=== PATIENT | female | born 1975 | race African-American/Black ===

== ENCOUNTER 2016-05-22 07:44 | Observation (INO) | payer MEDICAID ==
[~2016-05-22] VITALS: Ht 165.1 cm; Wt 94.3 kg
[2016-05-22 08:30] LABS: Basophils # (auto) 0 uL; Basophils % (auto) 0.2 % (0.0-2.0); DEFINITIVE VIEW TRANSMISSION; Eosinophils # (auto) 0.5 uL; Eosinophils % (auto) 5.9 % (0.0-7.0); Hemoglobin 9.7 g/dL (12.2-16.2); Lymphocytes # (auto) 0.9 uL; Lymphocytes % (auto) 10.9 % (10.0-50.0); Mean Corpuscular Hemoglobin 23.6 pg (28.0-32.0); Mean Corpuscular Hgb Conc. 32.3 g/dL (32.0-36.0); Mean Corpuscular Volume 73.1 fL (80.0-100.0); Mean Platelet Volume 8.2 fL (7.4-10.4); Monocytes # (auto) 0.4 uL; Neutrophils # (auto) 6.7 uL; Platelet Count (auto) 436 10^3/uL (140-450); Red Cell Distribution Width 18.9 % (11.6-16.0); SUSPECT VIEW TRANSMISSION; White Blood Cell 8.6 10^3/uL (4.4-10.8)
[2016-05-22] MEDS ORDERED: SODIUM CHLORIDE 0.9% 1,000 ML IV ONE (08:34)
[2016-05-22] MEDS ORDERED: IPRATROPIUM BROM 0.5 MG/2.5ML INH SOL NEB ONE (08:45)
[2016-05-22] MEDS ORDERED: ALBUTEROL SULF 2.5 MG/0.5ML(0.5%) NEB SOLN NEB ONE (08:45)
[2016-05-22 08:47] LABS: Albumin 3.2 g/dL (3.4-5.0); BUN/Creatinine Ratio 15.5; Potassium 3.2 mmol/L (3.5-5.1)
[2016-05-22 08:49] LABS: Bilirubin, Total 0.3 mg/dL (0.2-1.0)
[2016-05-22 08:50] LABS: Total Protein 7.4 g/dL (6.4-8.2)
[2016-05-22 09:29] LABS: Urine Bilirubin Negative (Negative); Urine Blood Negative /uL (Negative); Urine Color Yellow (Yellow); Urine Glucose Normal (Normal); Urine Ketone Negative (Negative); Urine Mucus FEW (None Seen); Urine Nitrite Negative (Negative); Urine RBC <1 /hpf (0 - 4); Urine Squamous Epithelial Cell FEW /hpf (<5); Urine Urobilinogen Normal (Negative)
[2016-05-22] MEDS ORDERED: POTASSIUM CHL 10% (20 MEQ/15ML) ORAL SOLN PO ONE (12:15)
[2016-05-22 12:48] VITALS: BP 152/92
== END 2016-05-22 14:17 | disposition home or self-care (01) | DRG 723 ==
LOC: ER 07:44 → OVERFLOW 07:45 → UNDOADMOB 07:45 → OVERFLOW 08:36 → ER 14:17 → UNDODISOB 14:17
PROVIDERS: ADMIT Emergency Medicine; ATTEND Emergency Medicine
DX: B34.9 Viral infection, unspecified (principal); I10 Essential (primary) hypertension; E44.1 Mild protein-calorie malnutrition; D50.9 Iron deficiency anemia, unspecified; E87.6 Hypokalemia; F17.210 Nicotine dependence, cigarettes, uncomplicated; J45.909 Unspecified asthma, uncomplicated; J02.9 Acute pharyngitis, unspecified; M79.1 Myalgia
CPT/HCPCS: 36415; 71020; 80053; 81001; 81025; 83735; 84443; 85025; 94640; 96360; 96361; 99285; G0378; J7030

== ENCOUNTER 2016-08-06 13:54 | Emergency (ER) | payer MEDICAID ==
[~2016-08-06] VITALS: Ht 170.2 cm; Wt 86.2 kg
[2016-08-06] MEDS ORDERED: SODIUM CHLORIDE 0.9% 1,000 ML IVB ONE (14:08)
[2016-08-06] MEDS ORDERED: HYDROmorphone HCL 2 MG/ML VL IV ONE (14:15)
[2016-08-06] MEDS ORDERED: ONDANSETRON HCL 4 MG/2 ML VIAL IV ONE (14:15)
[2016-08-06 15:28] LABS: Basophils # (auto) 0 uL; Basophils % (auto) 0.2 % (0.0-2.0); DEFINITIVE VIEW TRANSMISSION; Eosinophils # (auto) 0.1 uL; Eosinophils % (auto) 0.8 % (0.0-7.0); Hematocrit 34.8 % (36.0-46.0); Hemoglobin 11.7 g/dL (12.2-16.2); Lymphocytes # (auto) 1.1 uL; Mean Corpuscular Hemoglobin 26.9 pg (28.0-32.0); Mean Corpuscular Hgb Conc. 33.5 g/dL (32.0-36.0); Mean Corpuscular Volume 80.3 fL (80.0-100.0); Mean Platelet Volume 9.4 fL (7.4-10.4); Monocytes # (auto) 0.6 uL; Monocytes % (auto) 4.9 % (0.0-12.0); Neutrophils # (auto) 10.1 uL; Neutrophils % (auto) 85.1 % (37.0-80.0); Platelet Count (auto) 427 10^3/uL (140-450); Red Cell Distribution Width 19.9 % (11.6-16.0); White Blood Cell 11.9 10^3/uL (4.4-10.8)
[2016-08-06 15:49] LABS: Albumin 3.7 g/dL (3.4-5.0); BUN/Creatinine Ratio 16.7; Bilirubin, Total 0.5 mg/dL (0.2-1.0); Calcium 8.9 mg/dL (8.5-10.1); Magnesium 2.1 mg/dL (1.6-2.6); Potassium 3.3 mmol/L (3.5-5.1); Total Protein 7.6 g/dL (6.4-8.2)
[2016-08-06 16:23] VITALS: BP 147/85
[2016-08-06 17:31] LABS: Urine Bilirubin Negative (Negative); Urine Blood Negative /uL (Negative); Urine Color Yellow (Yellow); Urine Glucose Normal (Normal); Urine Ketone Negative (Negative); Urine Nitrite Negative (Negative); Urine RBC <1 /hpf (0 - 4); Urine Squamous Epithelial Cell FEW /hpf (<5); Urine Urobilinogen Normal (Negative)
[2016-08-06 18:59] LABS: Anisocytosis Slight; Platelet Estimate Adequate
== END 2016-08-06 19:08 | disposition home or self-care (01) ==
LOC: EDBD 13:54 → ER 14:00
DX: R10.31 Right lower quadrant pain (principal); I10 Essential (primary) hypertension; F17.210 Nicotine dependence, cigarettes, uncomplicated; J45.909 Unspecified asthma, uncomplicated; Z90.49 Acquired absence of other specified parts of digestive tract; E66.9 Obesity, unspecified; Z68.29 Body mass index [BMI] 29.0-29.9, adult
CPT/HCPCS: 36415; 74176; 80053; 81001; 82150; 83690; 83735; 84702; 85025; 94761; 96361; 96374; 96375; 99285; J1170; J2405

== ENCOUNTER 2020-10-14 06:01 | Emergency (ER) | payer MEDICAID ==
[~2020-10-14] VITALS: Ht 165.1 cm; Wt 98.0 kg
[2020-10-14 07:46] VITALS: BP 121/73
[2020-10-14] MEDS ORDERED: cefTRIAXone SOD 1,000 MG VL IM ONE (08:15)
[2020-10-14] MEDS ORDERED: LIDOCAINE HCL (LOCAL ANESTH.) 0.5 % 50ML MDV IJ ONE (08:15)
[2020-10-14] MEDS ORDERED: LIDOCAINE 1% HCL (LOCAL ANESTH.) INJ 20ML MDV ONE (08:17)
== END 2020-10-14 08:44 | disposition home or self-care (01) ==
LOC: ER 06:01
DX: K04.7 Periapical abscess without sinus (principal); I10 Essential (primary) hypertension; J45.909 Unspecified asthma, uncomplicated; F17.210 Nicotine dependence, cigarettes, uncomplicated; Z90.49 Acquired absence of other specified parts of digestive tract
CPT/HCPCS: 41800; 96372; 99284; J0696; J2001

== ENCOUNTER 2022-04-04 17:28 | Emergency (ER) | payer MEDICAID ==
[2022-04-04 18:35] LABS: Hemoglobin 8.6 g/dL (12.2-16.2); White Blood Cell 8.5 10^3/uL (4.4-10.8)
[2022-04-04 18:37] LABS: Mean Corpuscular Hemoglobin 19.8 pg (28.0-32.0); Mean Corpuscular Hgb Conc. 30.8 g/dL (32.0-36.0); Mean Corpuscular Volume 64.5 fL (80.0-100.0); Red Blood Cells 4.34 10^6/uL (4.0-5.20)
[2022-04-04 18:39] LABS: Albumin 3.7 g/dL (3.4-5.0); BUN/Creatinine Ratio 14.9; Calcium 9.2 mg/dL (8.5-10.1); Potassium 3.9 mmol/L (3.5-5.1)
[2022-04-04 18:42] LABS: Bilirubin, Total 0.2 mg/dL (0.2-1.0); Total Protein 7.7 g/dL (6.4-8.2)
[2022-04-04 18:44] LABS: Red Cell Distribution Width 24.9 % (11.8-14.3)
[2022-04-04 18:45] LABS: Band Neutrophils % (manual) 0; Basophils % (manual) 0 (0.0-2.0); Blast Cells 0; Metamyelocytes % 0; Myelocytes % 0; Promyelocytes % 0; Reactive Lymphocytes 0
[2022-04-04 19:23] LABS: Eosinophils % (manual) 3 (0-7); Lymphocytes % (manual) 26 (10.0-50.0); Monocytes % (manual) 8 (0-12)
[2022-04-04 20:40] VITALS: BP 152/87
== END 2022-04-04 20:34 | disposition left against medical advice (07) ==
LOC: ER 17:28
DX: D64.9 Anemia, unspecified (principal); D25.9 Leiomyoma of uterus, unspecified; N93.8 Other specified abnormal uterine and vaginal bleeding; I10 Essential (primary) hypertension; F17.210 Nicotine dependence, cigarettes, uncomplicated; Z90.49 Acquired absence of other specified parts of digestive tract
CPT/HCPCS: 36415; 76856; 80053; 84702; 85007; 85027

== ENCOUNTER 2024-12-30 06:18 | Emergency (ER) | payer MEDICAID ==
[~2024-12-30] VITALS: Ht 165.1 cm; Wt 105.2 kg
[2024-12-30 07:20] LABS: Hematocrit 39.5 % (36.0-46.0); Hemoglobin 13.6 g/dL (12.2-16.2); Mean Corpuscular Hemoglobin 31.8 pg (28.0-32.0); Mean Corpuscular Volume 92.3 fL (80.0-100.0); Nucleated Red Blood Cells % 0.0 %
--- NOTE | 2024-12-30 07:20 | ED.PDOC ---
[employer] HPI Comments A 49 YEAR OLD FEMALE PRESENTS TO THE ED WITH COMPLAINT OF VAGINAL BLEEDING AND PELVIC CRAMPING. PATIENT STATES SHE HAS BEEN EXPERIENCING VAGINAL BLEEDING AND PELVIC CRAMPING OFF AND ON SINCE 11/07/2024. PATIENT NOTES HE HAS A HISTORY UTERINE FIBROIDS AND HAD AN ABLATION DONE TO REMOVE THEM, BUT NOTES SHE HAD AN ULTRASOUND DONE THIS PREVIOUS FRIDAY AND [facility] WHERE UTERINE FIBROIDS WERE REVEALED ON AN ULTRASOUND. PATIENT NOTES SHE WAS PRESCRIBED PROVERA, BUT NOTES THERE HAS BEEN NO IMPROVEMENT IN HER SYMPTOMS. PATIENT IS ALSO REQUESTING A BLOOD TEST IN THE ED SHE STATES SHE IS NOT SURE IF SHE IS CURRENTLY OR NOT, BUT NOTES IT IS A POSSIBILITY. PATIENT NOTES SHE HAS AN APPOINTMENT WITH HER [facility] H [employer] AGENT THIS COMING UP Friday01/03/2025. PATIENT DENIES DYSURIA, HEMATURIA, VAGINAL DISCHARGE, FLANK PAIN, FEVER, CHILLS, SHORTNESS OF BREATH, CHEST PAIN, ABDOMINAL PAIN, NAUSEA, VOMITING, HEADACHE, OR OTHER COMPLAINTS. NO OTHER SYMPTOMS OR MODIFYING FACTORS AT THIS TIME. PATIENT IS ALERT, ORIENTED X 4, AND HAS STEADY GAIT. Chief Complaint: Vaginal Bleed Time Seen by MD: 06:42 Reviewed Notes: Nurses Notes, Medications, Allergies Allergies: Coded Allergies: NO KNOWN ALLERGIES (Unverified , 05/22/16) Home Meds Active Scripts Naproxen (Naproxen) 500 Mg Tab, 500 MG PO BID, #30 TAB Prov:DANG HAN 12/30/24 Information Source: Patient Mode of Arrival: Ambulatory Timing: Weeks Prehospital treatment: None Severity: Moderate Vaginal Discharge: None Vaginal Lesions: None Bleeding Quality: Bright Red Vaginal Mass: None Onset Of Mass/Bleeding: Spontaneous Sexual Activity: Neither Last Consensual Day Heights: Unknown Control: None Blood Type: Unknown Symptoms of Possible : None Associated Signs and Symptoms: Vaginal Bleeding, Cramping Past Medical History PAST MEDICAL HISTORY: Anemia, HTN Surgical History: Cholecystectomy, [employer] TECHNICIAN History: Uterine Fibroids Family History Family History: Reviewed,noncontributory to illness Social History Smoker: Cigarettes Alcohol: Occasionally Drugs: Denies Drug Use Lives In: Home Constitutional: denies: chills, diaphoresis, fatigue, fever, malaise, sweats, weakness, others EENTM: denies: blurred vision, double vision, ear bleeding, ear discharge, ear drainage, ear pain, ear ringing, eye pain, eye redness, hearing loss, mouth pain, mouth swelling, nasal discharge, nose bleeding, nose congestion, nose pain, photophobia, tearing, throat pain, throat swelling, voice changes, others Respiratory: denies: cough, hemoptysis, orthopnea, SOB at rest, shortness of breath, SOB with excertion, stridor, wheezing, others Cardiovascular: denies: chest pain, dizzy spells, diaphoresis, Dyspnea on exertion, edema, irregular heart beat, left arm pain, lightheadedness, palpitations, PND, syncope, others Gastrointestinal: denies: abdomen distended, abdominal pain, blood streaked bowels, constipated, diarrhea, dysphagia, difficulty swallowing, hematemesis, melena, nausea, poor appetite, poor fluid intake, rectal bleeding, rectal pain, vomiting, others Genitourinary: reports: abnormal vagina bleeding, pain (PELVIC PAIN); denies: burning, dyspareunia, dysuria, flank pain, frequency, hematuria, incontinence, , vagina discharge, urgency, others Neurological: denies: dizziness, fainting, headache, left sided numbness, left sided weakness, numbness, paresthesia, pre-existing deficit, right sided numbness, right sided weakness, seizure, speech problems, tingling, tremors, weakness, others Musculoskeletal: denies: back pain, gout, joint pain, joint swelling, muscle pain, muscle stiffness, neck pain, others Integumetry: denies: bruises, change in color, change in hair/nails, dryness, laceration, lesions, lumps, rash, wounds, others Allergic/Immunocompromised: denies: Difficulty Healing, Frequent Infections, Hives, Itching, others Hematologic/Lymphatic: denies: anemia, blood clots, easy bleeding, easy bruising, swollen glands, others Endocrine: denies: excessive hunger, excessive sweating, excessive thirst, excessive urination, flushing, intolerance to cold, intolerance to heat, unexplained weight gain, unexplained weight loss, others Psychiatric: denies: anxiety, bipolar disorder, depression, hopeless, panic disorder, schizophrenia, sleepless, suicidal, others All Other Systems: Reviewed and Negative Physical Exam General Appearance: No Apparent Distress, Normal HEENT: Normal ENT Inspection, PERRL/EOMI, Pharynx Normal, TMs Normal Neck: Full Range of Motion, Non-Tender, Normal, Normal Inspection Respiratory: Chest Non-Tender, Lungs Clear, No Accessory Muscle Use, No Respiratory Distress, Normal Breath Sounds Cardiovascular: No Edema, No JVD, No Murmur, No Gallop, Normal Peripheral Pulses, Regular Rate/Rhythm Breast Exam: Deferred Gastrointestinal: No Organomegaly, Non Tender, No Pulsatile Mass, Normal Bowel Sounds, Soft Genitalia: Deferred Pelvic: Normal External Exam, Vaginal Bleeding (MENSTRUAL BLEEDING, NO BLOOD CLOTS. 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 Was a procedure done?: No Differential Diagnosis ([employer]LE[employer] FI[employer] TECHNICIAN) Vaginal Bleeding: Dysmenorrhea, Menorrhagia, Menstrual Bleeding, UTI, Vaginitis Mass / Lesion: N/A Vaginal Discharge: UTI, N/A X-Ray, Labs, Meds, VS Vital Signs Date Time Temp Pulse Resp B/P (MAP) Pulse Ox O2 Delivery O2 Flow Rate FiO2 12/30/24 06:32 97.3 109 18 130/88 97 97.3 Lab Test 12/30/24 07:13 12/30/24 06:52 Range/Units Urine Color Light-red Yellow Urine Clarity Cloudy H Clear Urine pH 5.0 5.0-9.0 Urine Specific [place] 1.016 1.001-1.035 Urine Protein 1+ H Negative Urine Ketones 1+ H Negative Urine Blood 3+ H Negative /uL Urine Nitrite Negative Negative Urine Bilirubin Negative Negative Urine Urobilinogen Normal Negative mg/dL Urine Leukocyte Esterase 2+ Negative /uL Urine RBC 3646 0 - 4 /hpf Urine Microscopic WBC 43 H 0-5 /HPF Urine Squamous Epithelial Cells Few <5 /hpf Urine Bacteria None seen None Seen /hpf Urine Glucose Normal Normal mg/dL White Blood Count 7.4 4.4-10.8 10^3/uL Red Blood Count 4.28 4.0-5.20 10^6/uL Hemoglobin 13.6 12.2-16.2 g/dL Hematocrit 39.5 36.0-46.0 % Mean Corpuscular Volume 92.3 80.0-100.0 fL Mean Corpuscular Hemoglobin 31.8 28.0-32.0 pg Mean Corpuscular Hemoglobin Concent 34.5 32.0-36.0 g/dL Red Cell Distribution Width 13.2 11.8-14.3 % Platelet Count 319 140-450 10^3/uL Mean Platelet Volume 9.0 6.9-10.8 fL Neutrophils (%) (Auto) 75.2 37.0-80.0 % Lymphocytes (%) (Auto) 16.9 10.0-50.0 % Monocytes (%) (Auto) 4.3 0.0-12.0 % Eosinophils (%) (Auto) 3.0 0.0-7.0 % Basophils (%) (Auto) 0.6 0.0-2.0 % Neutrophils # (Auto) 5.5 1.6-8.6 10 ^3/uL Lymphocytes # (Auto) 1.2 0.4-5.4 10 ^3/uL Monocytes # (Auto) 0.3 0-1.3 10 ^3/uL Eosinophils # (Auto) 0.2 0-0.8 10 ^3/uL Basophils # (Auto) 0 0-0.2 10 ^3/uL Nucleated Red Blood Cells 0.0 % Sodium Level 142 136-145 mmol/L Potassium Level 3.6 3.5-5.1 mmol/L Chloride Level 109 H 98-107 mmol/L Carbon Dioxide Level 23 20-31 mmol/L Anion Gap 10 5-15 Blood Urea Nitrogen 9 9-23 mg/dL Creatinine 0.79 0.550-1.02 mg/dL Glomerular Filtration Rate Calc 91 >90 mL/min BUN/Creatinine Ratio 11.4 10.0-20.0 Serum Glucose 104 74-106 mg/dL Calcium Level 10.0 8.7-10.4 mg/dL Beta HCG, Quantitative 0.5 L 1.5-4.2 mIU/mL INDICATION: VAGINAL BLEEDING X 2 MONTHS TECHNIQUE: Multiple real-time grayscale transabdominal and transvaginal sonographic images along with color and duplex Doppler of the uterus and ovaries were obtained. COMPARISON: PELVIC on DOS: 04/04/22, PELUS on DOS: 04/04/22 FINDINGS: The uterus measures 11.9 x 9.3 x 7.4 cm. The endometrial stripe measures 1.2cm. Ovaries are not visualized. Uterine fundal fibroids are present measuring up to 2.6 cm in the fundus. Few cervical nabothian cysts are present measuring up to 1.1 cm. IMPRESSION: Uterine fibroids measuring up to 2.6 cm in the fundus. Ovaries are not visualized. ATED BY: STEVO CHASE MD DICTATED DATE/TIME: 12/30/24833 SIGNED BY: STEVO CHASE MD SIGNED DATE/TIME: 12/30/24833 CC: X-Ray, Labs, Meds, VS Comment EXTERNAL MEDICAL RECORDS REVIEWED: [NONE] INDEPENDENT HISTORIANS: [NONE] SOCIAL DETERMINANTS OF HEALTH: [NONE] LABS ORDERED: CBC, BMP, UA, BETA HCG QUANT REVIEWED AND INTERPRETED RESULTS: LEUKOCYTES 2+ IMAGING ORDERED: US PELVIS TREATMENTS ORDERED: TORADOL 60 MG IM PROCEDURES PERFORMED: NONE CRITICAL CARE TIME: NONE I HAVE DISCUSSED THE PATIENT WITH THE ATTENDING PHYSICIAN DR. FISHER AND HE AGREES WITH THE PATIENT'S PLAN OF CARE AND DISPOSITION. BASED ON HISTORY OF PRESENT ILLNESS, AND PHYSICAL EXAM, PATIENT WILL BE DISCHARGED HOME. DISCUSSED PLAN FOR DISCHARGE HOME WITH RX [NAPROXEN 500 MG AND SEPTRA DS]. MEDICATION WARNINGS GIVEN. SHARED DECISION MAKING: DISCUSSED WITH PATIENT THAT THEIR WORKUP WAS NORMAL. PATIENT INSTRUCTED TO FOLLOW UP WITH PRIMARY CARE PROVIDER IN 1-2 DAYS FOR RE- EVALUATION OF SYMPTOMS. PATIENT VERBALIZES UNDERSTANDING TO RETURN TO ED FOR NEW OR WORSENING SYMPTOMS OR IF FOLLOW UP WITH PCP CANNOT BE OBTAINED. PATIENT FEELS COMFORTABLE GOING HOME AT THIS TIME. ALL QUESTIONS ADDRESSED AT TIME OF DISCHARGE. Images Reviewed?: Images reviewed and evaluated by me Time of 1ST Reevaluation: 09:00 Reevaluation 1ST: Improved Patient Education/Counseling: Diagnosis, Treatment, Need For Follow Up Family Education/Counseling: Diagnosis, Treatment, Need For Follow Up Medical Screening: No EMC Exist At This Time Departure 1 Departure Time of Disposition: 09:00 Impression: Primary Impression: Vaginal bleeding Additional Impressions: Uterine fibroid Qualified Codes: D25.9 - Leiomyoma of uterus, unspecified Acute UTI (urinary tract infection) Disposition: 01 HOME / SELF CARE / HOMELESS Condition: Stable Additional Instructions: FOLLOW-UP WITH PCP AND [employer] AGENT IN 1 TO 2 DAYS. TAKE MEDICATIONS PRESCRIBED. RETURN TO ED FOR ANY NEW OR WORSENING SYMPTOMS. e-Prescriptions Naproxen (Naproxen) 500 Mg Tab 500 MG PO BID, #30 TAB Prov: DANG HAN 12/30/24 Discharged With: Self Critical Care Note Critical Care Time?: No Stability Stability form required: No I personally scribed for DANG HAN ([email or web address]) on 12/30/24 at 07:20. Electronically submitted by Guevara Estes ([employer]). I personally scribed for DANG HAN ([email or web address]) on 12/30/24 at 07:29. Electronically submitted by Guevara Estes ([employer]). I personally scribed for DANG HAN ([email or web address]) on 12/30/24 at 08:39. Electronically submitted by Guevara Estes ([employer]). I personally scribed for DANG HAN ([email or web address]) on 12/30/24 at 08:43. Electronically submitted by Guevara Estes ([employer]). I personally scribed for DANG HAN ([email or web address]) on 12/30/24 at 08:48. Electronically submitted by Guevara Estes ([employer]). DANG HAN Dec 30, 2024 07:20
[2024-12-30 07:27] LABS: Potassium 3.6 mmol/L (3.5-5.1); Sodium 142 mmol/L (136-145)
[2024-12-30 07:28] LABS: Anion Gap 10 (5-15); Carbon Dioxide 23 mmol/L (20-31)
[2024-12-30 07:29] LABS: Calcium 10.0 mg/dL (8.7-10.4); Chloride 109 mmol/L (98-107)
[2024-12-30 07:33] LABS: BUN/Creatinine Ratio 11.4 (10.0-20.0); Blood Urea Nitrogen 9 mg/dL (9-23); Glucose 104 mg/dL (74-106)
[2024-12-30 07:56] LABS: Urine Protein, UAD 1+ (Negative)
--- NOTE | 2024-12-30 08:36 | DVH ---
INDICATION: VAGINAL BLEEDING X 2 MONTHS TECHNIQUE: Multiple real-time grayscale transabdominal and transvaginal sonographic images along with color and duplex Doppler of the uterus and ovaries were obtained. COMPARISON: PELVIC on DOS: 04/04/22, PELUS on DOS: 04/04/22 FINDINGS: The uterus measures 11.9 x 9.3 x 7.4 cm. The endometrial stripe measures 1.2cm. Ovaries are not visualized. Uterine fundal fibroids are present measuring up to 2.6 cm in the fundus. Few cervical nabothian cysts are present measuring up to 1.1 cm. IMPRESSION: Uterine fibroids measuring up to 2.6 cm in the fundus. Ovaries are not visualized.
[2024-12-30] MEDS ORDERED: NAPR-746 PO (08:48)
[2024-12-30] MEDS ORDERED: BACDST PO (08:52)
[2024-12-30 08:57] VITALS: BP 142/83; PULSE 92; RESP 18; TEMP 98.7; O2SAT 96
[2024-12-30] MEDS: KETOROLAC TROMETH 60MG/2ML VIAL IM ONE (09:01)
== END 2024-12-30 09:03 | disposition home or self-care (01) ==
LOC: ER 06:18
DX: N39.0 Urinary tract infection, site not specified (principal); N93.9 Abnormal uterine and vaginal bleeding, unspecified; D25.9 Leiomyoma of uterus, unspecified; R10.20 Pelvic and perineal pain unspecified side; F17.210 Nicotine dependence, cigarettes, uncomplicated; F10.90 Alcohol use, unspecified, uncomplicated; I10 Essential (primary) hypertension; Z79.899 Other long term (current) drug therapy; Z90.49 Acquired absence of other specified parts of digestive tract; Z86.018 Personal history of other benign neoplasm; Y90.9 Presence of alcohol in blood, level not specified
CPT/HCPCS: 36415; 76830; 76856; 80048; 81001; 84702; 85025; 96372; 99285; J1885